=== PATIENT | male | born 1965 | race Two or more races ===

== ENCOUNTER 2019-01-18 16:08 | Inpatient (IN) | payer BC ==
[~2019-01-18] VITALS: Ht 180.3 cm; Wt 79.1 kg
[2019-01-18 17:10] LABS: Basophils # (auto) 0 uL; Basophils % (auto) 0.2 % (0.0-2.0); Eosinophils # (auto) 0.5 uL; Eosinophils % (auto) 2.7 % (0.0-7.0); Hematocrit 43.1 % (41.0-53.0); Hemoglobin 14.5 g/dL (13.5-17.5); Lymphocytes # (auto) 1.7 uL; Lymphocytes % (auto) 9.5 % (10.0-50.0); Mean Corpuscular Hemoglobin 30.3 pg (28.0-32.0); Mean Corpuscular Hgb Conc. 33.7 g/dL (32.0-36.0); Mean Corpuscular Volume 89.8 fL (80.0-100.0); Monocytes % (auto) 5.8 % (0.0-12.0); Neutrophils # (auto) 14.3 uL; Neutrophils % (auto) 81.8 % (37.0-80.0); Platelet Count (auto) 416 10^3/uL (140-450); White Blood Cell 17.5 10^3/uL (4.4-10.8)
[2019-01-18 17:23] LABS: Alanine Aminotransferase 25 U/L (16-61); Albumin 3.5 g/dL (3.4-5.0); Anion Gap 11 (5-15); Aspartate Aminotransferase 15 U/L (15-37); BUN/Creatinine Ratio 13.9; Blood Urea Nitrogen 17 mg/dL (7-18); Calcium 8.2 mg/dL (8.5-10.1); Carbon Dioxide 23 mmol/L (21-32); Chloride 106 mmol/L (98-107); GFR African American 80 mL/min; GFR Non-African American 66 mL/min; Glucose 104 mg/dL (74-106); Potassium 3.3 mmol/L (3.5-5.1); Sodium 140 mmol/L (136-145)
[2019-01-18 17:28] LABS: Alkaline Phosphatase 72 U/L (45-117); Bilirubin, Total 0.8 mg/dL (0.2-1.0); Total Protein 6.9 g/dL (6.4-8.2)
[2019-01-18] MEDS ORDERED: IOHEXOL 300 MG/ML 100ML BOTTLE IJ ONE (19:01)
[2019-01-18] MEDS ORDERED: ONDANSETRON HCL 4 MG/2 ML VIAL IV ONE (20:00)
[2019-01-18] MEDS ORDERED: SODIUM CHLORIDE 0.9% 1,000 ML IV ONE (20:00)
[2019-01-18] MEDS ORDERED: MORPHINE SULFATE 4 MG/ML SYR/VIAL IV ONE (20:00)
[2019-01-18] MEDS ORDERED: cloNIDine HCL 0.1 MG TAB PO ONE (20:00)
[2019-01-18 20:18] LABS: Amylase 98 U/L (25-115); Lipase 1039 U/L (73-393)
[2019-01-18] MEDS ORDERED: D5W/SOD CHL 0.45% 1,000 ML IV ONE (22:30)
[2019-01-18] MEDS ORDERED: metroNIDAZOLE 500MG/100ML 100 ML IV ONE (23:00)
[2019-01-18] MEDS ORDERED: cefTRIAXone 1GM/50ML D5W 50 ML IV ONE (23:00)
[2019-01-18] MEDS ORDERED: ACETAMINOPHEN 325 MG TAB PO PRN (23:00)
[2019-01-18] MEDS ORDERED: HYDROcodone-ACET 5/325MG TAB PO PRN (23:00)
[2019-01-18] MEDS ORDERED: ONDANSETRON HCL 4 MG/2 ML VIAL IV PRN (23:00)
[2019-01-18] MEDS ORDERED: TEMAZEPAM 15 MG CAP PO PRN (23:00)
[2019-01-18] MEDS: SODIUM CHLORIDE 0.9% 1,000 ML IV SCH (23:18)
[2019-01-19 00:11] LABS: INR 0.99 (0.9-1.15)
[2019-01-19] MEDS: MORPHINE SULFATE 4 MG/ML SYR/VIAL IV PRN ×4 (01:15→23:17)
[2019-01-19 01:20] VITALS: BP 129/90
--- NOTE | 2019-01-19 03:15 | NUR ---
MS admit from ER STEPHY CRAWFORD admitted to tele/MS after SBAR received. Patient oriented to ANA GIBSON, primary RN, unit, room, bed, and unit policies regarding patient care and visiting hours. Patient weighed by bed scale and encouraged to call if they need something. All questions and concerns addressed, patient verbalized understanding. Note: Patient alert and oriented X4, ambulatory, skin intact, no acute distress noted.
[2019-01-19 05:00] VITALS: BP 116/72
[2019-01-19] MEDS: metroNIDAZOLE 500MG/100ML 100 ML IV SCH ×3 (06:00→22:29)
--- NOTE | 2019-01-19 07:35 | NUR ---
RECEIVED REPORT AND ASSUME CARE OF PT. A/OX4. DENIED S/S ACUTE DISTRESS. UPDATE PT WITH POC. BED AT LOWEST POSITION. CALL LIGHT AND BELONGINGS WITHIN REACH. WILL CONT TO MONITOR.
[2019-01-19 08:00] VITALS: BP 142/98
[2019-01-19 08:30] LABS: Basophils # (auto) 0 uL; Basophils % (auto) 0.3 % (0.0-2.0); Eosinophils # (auto) 0.5 uL; Eosinophils % (auto) 4.2 % (0.0-7.0); Hematocrit 44.7 % (41.0-53.0); Lymphocytes # (auto) 2.2 uL; Lymphocytes % (auto) 19.1 % (10.0-50.0); Mean Corpuscular Hemoglobin 30.3 pg (28.0-32.0); Mean Corpuscular Hgb Conc. 33.5 g/dL (32.0-36.0); Mean Corpuscular Volume 90.3 fL (80.0-100.0); Monocytes # (auto) 0.8 uL; Monocytes % (auto) 6.6 % (0.0-12.0); Neutrophils # (auto) 8.1 uL; Neutrophils % (auto) 69.8 % (37.0-80.0); Nucleated Red Blood Cells % 0.1 %; Platelet Count (auto) 420 10^3/uL (140-450); Red Blood Cells 4.96 10^6/uL (4.5-5.90); Red Cell Distribution Width 14.4 % (11.8-14.3); White Blood Cell 11.5 10^3/uL (4.4-10.8)
[2019-01-19 08:40] LABS: Albumin 3.4 g/dL (3.4-5.0); BUN/Creatinine Ratio 12.4; Calcium 8.7 mg/dL (8.5-10.1); Potassium 3.7 mmol/L (3.5-5.1)
[2019-01-19 08:43] LABS: Bilirubin, Total 1.4 mg/dL (0.2-1.0)
[2019-01-19] MEDS ORDERED: cefTRIAXone 1GM/50ML D5W 50 ML IV SCH ×2 (09:00→22:00)
[2019-01-19] MEDS ORDERED: FAMOTIDINE 20 MG TAB PO SCH (10:00)
[2019-01-19] MEDS: SODIUM CHLORIDE 0.9% 1,000 ML IV SCH ×2 (11:17→20:25)
[2019-01-19 12:00] VITALS: BP 149/80
[2019-01-19] MEDS ORDERED: CARISOPRODOL 350 MG TAB PO PRN (15:15)
[2019-01-19 16:57] VITALS: BP 139/90
--- NOTE | 2019-01-19 19:27 | NUR ---
PT RESTING IN BED. NO S/S ACUTE DISTRESS NOTED. ENDORSED CARE TO NIGHT NURSE.
[2019-01-19 22:00] VITALS: BP_SYST 132; BP_SYST 139; BP_DIAS 86; BP_DIAS 90
[2019-01-19] MEDS ORDERED: FAMOTIDINE (10MG/ML) 2ML VL IV SCH (22:00)
[2019-01-20] MEDS: SODIUM CHLORIDE 0.9% 1,000 ML IV SCH ×3 (03:33→21:02)
[2019-01-20 05:00] VITALS: BP 153/77
[2019-01-20] MEDS: metroNIDAZOLE 500MG/100ML 100 ML IV SCH (05:39)
[2019-01-20] MEDS: MORPHINE SULFATE 4 MG/ML SYR/VIAL IV PRN ×2 (05:45→20:57)
[2019-01-20 06:54] LABS: Basophils # (auto) 0 uL; Basophils % (auto) 0.4 % (0.0-2.0); Eosinophils # (auto) 0.6 uL; Eosinophils % (auto) 6.2 % (0.0-7.0); Hematocrit 44.4 % (41.0-53.0); Hemoglobin 15.3 g/dL (13.5-17.5); Lymphocytes # (auto) 1.6 uL; Lymphocytes % (auto) 17.2 % (10.0-50.0); Mean Corpuscular Hgb Conc. 34.5 g/dL (32.0-36.0); Mean Corpuscular Volume 89.8 fL (80.0-100.0); Monocytes # (auto) 0.6 uL; Monocytes % (auto) 6.2 % (0.0-12.0); Neutrophils # (auto) 6.4 uL; Nucleated Red Blood Cells % 0.1 %; Platelet Count (auto) 410 10^3/uL (140-450); Red Blood Cells 4.94 10^6/uL (4.5-5.90); Red Cell Distribution Width 14.1 % (11.8-14.3); White Blood Cell 9.1 10^3/uL (4.4-10.8)
[2019-01-20 07:15] LABS: BUN/Creatinine Ratio 13.4; Calcium 8.7 mg/dL (8.5-10.1); Potassium 3.6 mmol/L (3.5-5.1)
[2019-01-20 07:22] LABS: Amylase 57 U/L (25-115); Lipase 205 U/L (73-393)
--- NOTE | 2019-01-20 07:30 | NUR ---
OPENING SHIFT NOTE: Received report from NOC RN, Jewels. Assumed care of patient. Patient resting in bed, denies pain. Bed in lowest position, rails x2 up and call light within reach. Updated on plan of care. Will continue to monitor.
[2019-01-20 08:39] VITALS: BP 161/94
--- NOTE | 2019-01-20 09:44 | NUR ---
FAMILY/PASSWORD: Spoke to patient's mother via phone. Patient has no established password on chart. Unable to provide mother any information at this time. Spoke to patient. Patient is agreeable to have staff give information to family. Password of '[place]' established. Transferred patient's mother to patient so he could inform her of password and updated himself on status.
--- NOTE | 2019-01-20 10:45 | NUR ---
MD: Dr Castle at bedside to see patient.
[2019-01-20] MEDS ORDERED: LISINOPRIL 10 MG TAB PO ONE (11:00)
[2019-01-20 12:30] VITALS: BP 154/91
--- NOTE | 2019-01-20 13:40 | NUR ---
IV ACCESS: RN called to room. Swelling noted to right AC near IV site. Assessed site and noted IV catheter to be dislodged. Catheter removed intact. Pressure dressing applied.
[2019-01-20 16:52] VITALS: BP 127/65
--- NOTE | 2019-01-20 17:51 | NUR ---
IV ACCESS: New #20 gauge IV started in left forearm after two attempts. Patient tolerated well. IVF restarted.
--- NOTE | 2019-01-20 19:10 | NUR ---
Opening Shift Note Received report from SAQIB MAYS, assumed care of patient. Patient awake and alert. No S/S of distress/SOB or pain. Instructed on POC and to call for assist PRN, will continue to monitor for changes Q1hr and PRN.
--- NOTE | 2019-01-20 19:14 | NUR ---
CLOSING SHIFT NOTE: Report given to NOC Ellen MAYS. Endorsed care of patient.
[2019-01-20] MEDS ORDERED: ATORVASTATIN 20 MG TAB PO SCH (22:00)
[2019-01-20 22:09] VITALS: BP 155/85
[2019-01-21] VITALS: BP 144/74
--- NOTE | 2019-01-21 05:00 | NUR ---
BP CHECK BP STABLE WITH A READING OF 131/72 AND A HEART RATE OF 63BPM
--- NOTE | 2019-01-21 05:15 | NUR ---
ROUNDS PATIENT RESTING IN BED WITH EYES CLOSED, EVEN AND UNLABORED RESPIRATIONS AT 18BPM AND SATURATION AT 93% ON ROOM AI. NO SIGNS OR SYMPTOMS OF PAIN OR DISTRESS. CALL LIGHT WITH IN REACH.
[2019-01-21 05:16] VITALS: BP 131/72
[2019-01-21 07:10] LABS: Basophils # (auto) 0 uL; Basophils % (auto) 0.4 % (0.0-2.0); Eosinophils # (auto) 0.7 uL; Eosinophils % (auto) 7.9 % (0.0-7.0); Hemoglobin 15.7 g/dL (13.5-17.5); Lymphocytes # (auto) 1.3 uL; Mean Corpuscular Hemoglobin 30.6 pg (28.0-32.0); Mean Corpuscular Hgb Conc. 34.2 g/dL (32.0-36.0); Mean Corpuscular Volume 89.5 fL (80.0-100.0); Monocytes # (auto) 0.6 uL; Monocytes % (auto) 7.1 % (0.0-12.0); Neutrophils # (auto) 6.1 uL; Neutrophils % (auto) 69.6 % (37.0-80.0); Platelet Count (auto) 435 10^3/uL (140-450); Red Blood Cells 5.14 10^6/uL (4.5-5.90); Red Cell Distribution Width 13.7 % (11.8-14.3); White Blood Cell 8.8 10^3/uL (4.4-10.8)
[2019-01-21 07:25] LABS: BUN/Creatinine Ratio 10.8; Calcium 8.9 mg/dL (8.5-10.1); Potassium 3.5 mmol/L (3.5-5.1)
--- NOTE | 2019-01-21 07:30 | NUR ---
OPENING SHIFT NOTE: Received report from NOC RNEllen. Assumed care of patient. Patient resting in bed, denies pain. Bed in lowest position, rails x2 up and call light within reach. Updated on plan of care. Will continue to monitor.
[2019-01-21 09:00] VITALS: BP 144/90
[2019-01-21] MEDS ORDERED: LISINOPRIL 10 MG TAB PO SCH (10:00)
[2019-01-21] MEDS ORDERED: ASPirin 81 mg TAB PO SCH (10:00)
[2019-01-21] MEDS ORDERED: PANTOPRAZOLE 40 MG TAB PO SCH (10:00)
--- NOTE | 2019-01-21 11:09 | NUR ---
MD: Dr Palacios at bedside. Plan to discharge home today.
[2019-01-21 11:52] LABS: Cholesterol 164 mg/dL (< 200); Triglycerides 96 mg/dL (< 150)
[2019-01-21 11:54] LABS: HDL Cholesterol 35 mg/dL (40-59); LDL Cholesterol 122 mg/dL (< 100)
[2019-01-21 12:04] VITALS: BP 144/90
[2019-01-21 13:00] VITALS: BP 165/100
[2019-01-21] MEDS: SODIUM CHLORIDE 0.9% 1,000 ML IV SCH (13:40)
--- NOTE | 2019-01-21 14:41 | NUR ---
DISCHARGE: Discharge instructions given as ordered. Encourage to follow up with PMD as instructed. All questions and concerns addressed. Patient verbalized understanding. Medication reconciliation form completed and copy given to patient. IV removed with catheter intact, pressure dressing applied. Patient taken to vehicle via wheelchair with all personal belongings, accompanied by staff and family member. No distress noted at time of departure.
== END 2019-01-21 14:30 | disposition home or self-care (01) | DRG 439 ==
LOC: EDBD 16:08 → ER 16:10 → CENTRAL 23:03
PROVIDERS: ADMIT Nurse Practitioner; ATTEND Internal Medicine
DX: K85.90 Acute pancreatitis without necrosis or infection, unspecified (principal); R65.10 Systemic inflammatory response syndrome (SIRS) of non-infectious origin without acute organ dysfunction; E87.6 Hypokalemia; K86.1 Other chronic pancreatitis; R55 Syncope and collapse; K44.9 Diaphragmatic hernia without obstruction or gangrene; M51.36 Other intervertebral disc degeneration, lumbar region; I12.9 Hypertensive chronic kidney disease with stage 1 through stage 4 chronic kidney disease, or unspecified chronic kidney disease; N18.9 Chronic kidney disease, unspecified; Z79.82 Long term (current) use of aspirin; Z83.3 Family history of diabetes mellitus; Z79.899 Other long term (current) drug therapy; Z86.73 Personal history of transient ischemic attack (TIA), and cerebral infarction without residual deficits
CPT/HCPCS: 36415; 70450; 71045; 74177; 76705; 80048; 80053; 80061; 82150; 83036; 83605; 83690; 83735; 84443; 84484; 85025; 85610; 85730; 87040; 93005; 94761; 96361; 96365; 96367; 96375; G0378; J0696; J2405; J3490

== ENCOUNTER 2019-04-21 20:31 | Emergency (ER) | payer BC ==
[~2019-04-21] VITALS: Ht 182.9 cm; Wt 81.6 kg
[2019-04-22 01:52] LABS: Basophils # (auto) 0.1 uL; Basophils % (auto) 0.7 % (0.0-2.0); Eosinophils # (auto) 0.6 uL; Eosinophils % (auto) 6.1 % (0.0-7.0); Hematocrit 42.4 % (41.0-53.0); Hemoglobin 14.8 g/dL (13.5-17.5); Lymphocytes # (auto) 1.8 uL; Lymphocytes % (auto) 17.9 % (10.0-50.0); Mean Corpuscular Hemoglobin 31.5 pg (28.0-32.0); Mean Corpuscular Volume 90.1 fL (80.0-100.0); Monocytes # (auto) 0.7 uL; Monocytes % (auto) 7.1 % (0.0-12.0); Neutrophils % (auto) 68.2 % (37.0-80.0); Platelet Count (auto) 402 10^3/uL (140-450); White Blood Cell 10.3 10^3/uL (4.4-10.8)
[2019-04-22 02:14] LABS: Urine Bacteria NONE SEEN /hpf (None Seen); Urine Blood 1+ /uL (Negative); Urine Specific Gravity 1.008 (1.001-1.035); Urine WBC <1 /hpf (0 - 3)
[2019-04-22 02:15] LABS: Alanine Aminotransferase 30 U/L (16-61); Albumin 3.9 g/dL (3.4-5.0); Anion Gap 8 (5-15); BUN/Creatinine Ratio 15.9; Blood Urea Nitrogen 14 mg/dL (7-18); Calcium 8.9 mg/dL (8.5-10.1); Carbon Dioxide 22 mmol/L (21-32); Chloride 110 mmol/L (98-107); GFR African American 117 mL/min; GFR Non-African American 97 mL/min; Glucose 101 mg/dL (74-106); Potassium 3.9 mmol/L (3.5-5.1); Sodium 140 mmol/L (136-145)
[2019-04-22 02:26] LABS: Alkaline Phosphatase 82 U/L (45-117); Aspartate Aminotransferase 12 U/L (15-37); Bilirubin, Total 0.7 mg/dL (0.2-1.0); Total Protein 7.5 g/dL (6.4-8.2)
[2019-04-22 04:58] VITALS: BP 145/81
== END 2019-04-22 05:00 | disposition home or self-care (01) ==
LOC: ER 20:32
DX: R10.9 Unspecified abdominal pain (principal); E78.5 Hyperlipidemia, unspecified; I10 Essential (primary) hypertension; F12.10 Cannabis abuse, uncomplicated; Z86.73 Personal history of transient ischemic attack (TIA), and cerebral infarction without residual deficits
CPT/HCPCS: 36415; 71045; 74176; 80053; 81001; 84484; 85025; 85379; 94761

== ENCOUNTER → 2020-01-30 | Emergency (ER) | payer BC ==
[~2020-01-30] VITALS: Ht 182.9 cm; Wt 81.6 kg
[~2020-01-30] MED LIST: LISI-646 PO
[2020-01-30 23:18] LABS: Lymphocytes # (auto) 1.2 10 ^3/uL (0.4-5.4); Monocytes # (auto) 0.6 10 ^3/uL (0-1.3)
[2020-01-30 23:20] LABS: Basophils # (auto) 0.1 10 ^3/uL (0-0.2); Basophils % (auto) 0.5 % (0.0-2.0); Eosinophils # (auto) 0.7 10 ^3/uL (0-0.8); Eosinophils % (auto) 6.4 % (0.0-7.0); Hematocrit 48.2 % (41.0-53.0); Hemoglobin 16.4 g/dL (13.5-17.5); Lymphocytes % (auto) 11.8 % (10.0-50.0); Mean Corpuscular Hemoglobin 30.4 pg (28.0-32.0); Mean Corpuscular Volume 89.3 fL (80.0-100.0); Monocytes % (auto) 6.1 % (0.0-12.0); Neutrophils # (auto) 7.8 10 ^3/uL (1.6-8.6); Neutrophils % (auto) 75.2 % (37.0-80.0); Nucleated Red Blood Cells % 0.1 %; Platelet Count (auto) 509 10^3/uL (140-450); White Blood Cell 10.4 10^3/uL (4.4-10.8)
[2020-01-30 23:33] LABS: INR 1.01 (0.9-1.15)
[2020-01-30 23:36] LABS: Albumin 4.1 g/dL (3.4-5.0); Anion Gap 6 (5-15); Blood Urea Nitrogen 19 mg/dL (7-18); Calcium 9.3 mg/dL (8.5-10.1); Carbon Dioxide 23 mmol/L (21-32); Chloride 108 mmol/L (98-107); Glucose 101 mg/dL (74-106); Potassium 3.7 mmol/L (3.5-5.1); Sodium 137 mmol/L (136-145)
[2020-01-30 23:44] LABS: Alanine Aminotransferase 38 U/L (16-61); Alkaline Phosphatase 84 U/L (45-117); Aspartate Aminotransferase 18 U/L (15-37); BUN/Creatinine Ratio 19.2; Bilirubin, Total 1.1 mg/dL (0.2-1.0); GFR African American 102 mL/min; GFR Non-African American 84 mL/min
[2020-01-31 03:38] LABS: Urine Bacteria FEW /hpf (None Seen); Urine Blood 1+ /uL (Negative); Urine Mucus FEW (None Seen); Urine Specific Gravity 1.014 (1.001-1.035); Urine WBC 1 /hpf (0 - 3)
[2020-01-31 03:54] LABS: Alcohol, Urine < 3.0 mg/dL (0-10); Amphetamine Screen, Urine NEGATIVE (NEGATIVE); Barbiturate Scree,Urine NEGATIVE (NEGATIVE); Benzodiazephine Screen, Urine NEGATIVE (NEGATIVE); Cannabinoid Screen, Urine POSITIVE (NEGATIVE); Cocaine Screen, Urine POSITIVE (NEGATIVE); Opiate Scree,Urine NEGATIVE (NEGATIVE); Phencyclidine Screen, Urine NEGATIVE (NEGATIVE)
[2020-01-31 06:22] VITALS: BP 151/97
== END | disposition home or self-care (01) ==
LOC: ER 22:34
DX: I73.01 Raynaud's syndrome with gangrene (principal); F41.9 Anxiety disorder, unspecified; I10 Essential (primary) hypertension; E78.5 Hyperlipidemia, unspecified; Z86.73 Personal history of transient ischemic attack (TIA), and cerebral infarction without residual deficits
CPT/HCPCS: 36415; 70450; 71045; 80053; 80307; 81001; 83605; 84484; 85025; 85610; 85730; 87070; 87804; 87880; 93005

== ENCOUNTER 2020-01-31 16:33 | Inpatient (IN) | payer BC ==
[~2020-01-31] VITALS: Ht 182.9 cm; Wt 85.8 kg
[2020-01-31] MEDS ORDERED: SODIUM CHLORIDE 0.9% 1,000 ML IV ONE ×2 (16:43)
[2020-01-31] MEDS ORDERED: CLOPIDOGREL BISULFATE 75 MG TAB PO ONE (18:00)
[2020-01-31 18:01] LABS: Basophils # (auto) 0.1 10 ^3/uL (0-0.2); Basophils % (auto) 0.5 % (0.0-2.0); Eosinophils % (auto) 7.1 % (0.0-7.0); Hemoglobin 15.9 g/dL (13.5-17.5); Lymphocytes # (auto) 2.1 10 ^3/uL (0.4-5.4); Lymphocytes % (auto) 14.9 % (10.0-50.0); Mean Corpuscular Hemoglobin 30.4 pg (28.0-32.0); Mean Corpuscular Hgb Conc. 33.1 g/dL (32.0-36.0); Mean Corpuscular Volume 91.6 fL (80.0-100.0); Monocytes # (auto) 0.9 10 ^3/uL (0-1.3); Monocytes % (auto) 6.7 % (0.0-12.0); Neutrophils # (auto) 9.7 10 ^3/uL (1.6-8.6); Neutrophils % (auto) 70.8 % (37.0-80.0); Nucleated Red Blood Cells % 0.2 %; Platelet Count (auto) 422 10^3/uL (140-450); Red Blood Cells 5.24 10^6/uL (4.5-5.90); White Blood Cell 13.7 10^3/uL (4.4-10.8)
[2020-01-31 18:15] LABS: INR 0.97 (0.9-1.15); Partial Thromboplastin Time 27.9 sec (23.64-32.05)
[2020-01-31 18:19] LABS: Alanine Aminotransferase 36 U/L (16-61); Albumin 3.6 g/dL (3.4-5.0); Anion Gap 7 (5-15); Blood Urea Nitrogen 23 mg/dL (7-18); Calcium 8.7 mg/dL (8.5-10.1); Carbon Dioxide 24 mmol/L (21-32); Chloride 106 mmol/L (98-107); Glucose 107 mg/dL (74-106); Potassium 3.7 mmol/L (3.5-5.1); Sodium 137 mmol/L (136-145)
[2020-01-31 18:24] LABS: Alkaline Phosphatase 101 U/L (45-117); Aspartate Aminotransferase 18 U/L (15-37); BUN/Creatinine Ratio 22.3; Bilirubin, Total 0.4 mg/dL (0.2-1.0); GFR African American 97 mL/min; GFR Non-African American 80 mL/min; Total Protein 7.2 g/dL (6.4-8.2)
[2020-01-31] MEDS ORDERED: MORPHINE SULF INJ 2 MG/ML SYRINGE 1ML IV PRN ×3 (19:00)
[2020-01-31] MEDS ORDERED: NITROGLYCERIN 0.4 MG SL TAB SL PRN ×2 (19:00)
[2020-01-31] MEDS ORDERED: ONDANSETRON HCL 4 MG/2 ML VIAL IV PRN (19:00)
[2020-01-31] MEDS ORDERED: ALUM & MAG HYDROX-SIMETH LIQ(MAALOX) 30 ML PO PRN (19:00)
[2020-01-31] MEDS ORDERED: LORazepam 0.5 MG TAB PO PRN (19:00)
[2020-01-31] MEDS: SODIUM CHLORIDE 0.9% 1,000 ML IV SCH (19:48)
[2020-01-31] MEDS: HYDROcodone-ACET 5/325MG TAB PO PRN (21:18)
[2020-01-31] MEDS ORDERED: LISI-646 PO (21:56)
[2020-01-31 22:00] VITALS: BP 161/103
[2020-01-31] MEDS ORDERED: ATORVASTATIN 20 MG TAB PO SCH (22:00)
[2020-01-31 22:29] LABS: Cholesterol 177 mg/dL (< 200); HDL Cholesterol 31 mg/dL (40-59); LDL Cholesterol 136 mg/dL (< 100); Triglycerides 250 mg/dL (< 150)
[2020-02-01 05:00] VITALS: BP 157/97
[2020-02-01] MEDS: HYDROcodone-ACET 5/325MG TAB PO PRN ×3 (05:35→21:53)
[2020-02-01 07:09] LABS: Eosinophils # (auto) 0.9 10 ^3/uL (0-0.8); Hemoglobin 15.5 g/dL (13.5-17.5)
[2020-02-01 07:12] LABS: Basophils # (auto) 0 10 ^3/uL (0-0.2); Basophils % (auto) 0.6 % (0.0-2.0); Eosinophils % (auto) 9.6 % (0.0-7.0); Hematocrit 45.1 % (41.0-53.0); Lymphocytes % (auto) 22.2 % (10.0-50.0); Mean Corpuscular Hemoglobin 30.7 pg (28.0-32.0); Mean Corpuscular Hgb Conc. 34.4 g/dL (32.0-36.0); Mean Corpuscular Volume 89.2 fL (80.0-100.0); Monocytes # (auto) 0.6 10 ^3/uL (0-1.3); Monocytes % (auto) 7.1 % (0.0-12.0); Neutrophils # (auto) 5.4 10 ^3/uL (1.6-8.6); Neutrophils % (auto) 60.5 % (37.0-80.0); Platelet Count (auto) 460 10^3/uL (140-450); Red Blood Cells 5.05 10^6/uL (4.5-5.90); Red Cell Distribution Width 14.2 % (11.8-14.3)
[2020-02-01 07:28] LABS: Albumin 3.5 g/dL (3.4-5.0); Calcium 8.7 mg/dL (8.5-10.1); Magnesium 2.5 mg/dL (1.6-2.6); Potassium 3.7 mmol/L (3.5-5.1)
[2020-02-01 07:31] LABS: BUN/Creatinine Ratio 18.5; Bilirubin, Total 0.9 mg/dL (0.2-1.0); INR 0.99 (0.9-1.15); Partial Thromboplastin Time 30.8 sec (23.64-32.05)
[2020-02-01 07:44] LABS: Urine Bacteria NONE SEEN /hpf (None Seen); Urine Blood Negative /uL (Negative); Urine Specific Gravity 1.012 (1.001-1.035); Urine WBC <1 /hpf (0 - 3)
[2020-02-01 08:03] LABS: Amphetamine Screen, Urine NEGATIVE (NEGATIVE); Barbiturate Scree,Urine NEGATIVE (NEGATIVE); Benzodiazephine Screen, Urine NEGATIVE (NEGATIVE); Cannabinoid Screen, Urine POSITIVE (NEGATIVE); Cocaine Screen, Urine POSITIVE (NEGATIVE); Opiate Scree,Urine NEGATIVE (NEGATIVE); Phencyclidine Screen, Urine NEGATIVE (NEGATIVE)
[2020-02-01 08:16] LABS: Alcohol, Urine < 3.0 mg/dL (0-10)
[2020-02-01 09:00] VITALS: BP 159/104
[2020-02-01] MEDS ORDERED: ENOXAPARIN SOD 40 MG/0.4 ML SYRINGE SC SCH (10:00)
[2020-02-01] MEDS ORDERED: ASPirin 81 mg TAB PO SCH (10:00)
[2020-02-01] MEDS ORDERED: CLOPIDOGREL BISULFATE 75 MG TAB PO SCH (10:00)
[2020-02-01] MEDS: cefTRIAXone 1GM/50ML D5W 50 ML IV SCH (10:23)
[2020-02-01] MEDS: ENOXAPARIN SOD 40 MG/0.4 ML SYRINGE SC SCH (10:27)
[2020-02-01] MEDS: SODIUM CHLORIDE 0.9% 1,000 ML IV SCH (11:26)
[2020-02-01 13:00] VITALS: BP 165/98
[2020-02-01] MEDS ORDERED: LISINOPRIL 20 MG TAB PO ONE (15:00)
[2020-02-01] MEDS ORDERED: MORPHINE SULF INJ 2 MG/ML SYRINGE 1ML IV PRN (15:00)
[2020-02-01] MEDS ORDERED: hydrALAZINE HCL 20 MG/ML VL IV PRN (15:00)
[2020-02-01] MEDS ORDERED: LORazepam 2MG/ML-1ML VIAL IV ONE (15:00)
[2020-02-01 16:56] VITALS: BP 153/99
[2020-02-01] MEDS: ATORVASTATIN 20 MG TAB PO SCH (21:53)
[2020-02-01 22:00] VITALS: BP 129/82
[2020-02-01] MEDS: ASPIRIN-DIPYRIDAMOLE (25/200MG) CAPSULE PO SCH (22:14)
[2020-02-02 05:00] VITALS: BP 138/87
[2020-02-02] MEDS: HYDROcodone-ACET 5/325MG TAB PO PRN (08:04)
[2020-02-02 09:00] VITALS: BP 163/102
[2020-02-02] MEDS: cefTRIAXone 1GM/50ML D5W 50 ML IV SCH (09:32)
[2020-02-02] MEDS: ENOXAPARIN SOD 40 MG/0.4 ML SYRINGE SC SCH (09:33)
[2020-02-02] MEDS: FAMOTIDINE 20 MG TAB PO SCH (09:34)
[2020-02-02] MEDS ORDERED: LISINOPRIL 20 MG TAB PO SCH (10:00)
[2020-02-02] MEDS: ASPIRIN-DIPYRIDAMOLE (25/200MG) CAPSULE PO SCH ×2 (10:25→21:55)
[2020-02-02 13:00] VITALS: BP 153/94
[2020-02-02] MEDS ORDERED: METOPROLOL TARTRATE 25 MG TAB PO ONE (14:30)
[2020-02-02 17:01] VITALS: BP 141/95
[2020-02-02] MEDS: METOPROLOL TARTRATE 25 MG TAB PO SCH (21:55)
[2020-02-02] MEDS: ATORVASTATIN 20 MG TAB PO SCH (21:55)
[2020-02-02 22:00] VITALS: BP 148/88
[2020-02-03] MEDS: HYDROcodone-ACET 5/325MG TAB PO PRN (02:56)
[2020-02-03 05:00] VITALS: BP 144/95
[2020-02-03 06:32] LABS: Potassium 3.8 mmol/L (3.5-5.1)
[2020-02-03 06:37] LABS: BUN/Creatinine Ratio 19.2; Calcium 9.4 mg/dL (8.5-10.1)
[2020-02-03 09:36] VITALS: BP 160/85
[2020-02-03] MEDS: ASPIRIN-DIPYRIDAMOLE (25/200MG) CAPSULE PO SCH ×2 (09:50→21:13)
[2020-02-03] MEDS: METOPROLOL TARTRATE 25 MG TAB PO SCH ×2 (09:51→21:14)
[2020-02-03] MEDS: ENOXAPARIN SOD 40 MG/0.4 ML SYRINGE SC SCH (09:51)
[2020-02-03] MEDS: FAMOTIDINE 20 MG TAB PO SCH (09:51)
[2020-02-03] MEDS ORDERED: SACUBITRIL-VALSARTAN 24mg/26mg TAB PO SCH (10:00)
[2020-02-03 13:29] VITALS: BP 142/92
[2020-02-03 17:56] VITALS: BP 156/101
[2020-02-03] MEDS: SACUBITRIL-VALSARTAN 24mg/26mg TAB PO SCH ×2 (18:07→21:13)
[2020-02-03] MEDS: ATORVASTATIN 20 MG TAB PO SCH (21:15)
[2020-02-03 22:03] VITALS: BP 140/79
[2020-02-04 05:00] VITALS: BP 122/86
[2020-02-04 09:49] VITALS: BP 140/94
[2020-02-04] MEDS: SACUBITRIL-VALSARTAN 24mg/26mg TAB PO SCH ×2 (09:55→22:06)
[2020-02-04] MEDS: FAMOTIDINE 20 MG TAB PO SCH (09:55)
[2020-02-04 13:00] VITALS: BP 167/101
[2020-02-04] MEDS: METOPROLOL TARTRATE 25 MG TAB PO SCH ×2 (13:37→22:06)
[2020-02-04] MEDS: ASPIRIN-DIPYRIDAMOLE (25/200MG) CAPSULE PO SCH ×2 (13:37→22:00)
[2020-02-04] MEDS: ENOXAPARIN SOD 40 MG/0.4 ML SYRINGE SC SCH (13:38)
[2020-02-04] MEDS: HYDROcodone-ACET 5/325MG TAB PO PRN (16:22)
[2020-02-04 16:56] VITALS: BP 139/92
[2020-02-04 22:00] VITALS: BP 120/78
[2020-02-04] MEDS: ATORVASTATIN 20 MG TAB PO SCH (22:06)
[2020-02-05 05:00] VITALS: BP 116/81
[2020-02-05 05:37] LABS: Basophils # (auto) 0.1 10 ^3/uL (0-0.2); Eosinophils # (auto) 0.8 10 ^3/uL (0-0.8); Hematocrit 49.1 % (41.0-53.0); Mean Corpuscular Hgb Conc. 34.7 g/dL (32.0-36.0)
[2020-02-05 05:40] LABS: Basophils % (auto) 0.7 % (0.0-2.0); Eosinophils % (auto) 7.1 % (0.0-7.0); Mean Corpuscular Hemoglobin 31.3 pg (28.0-32.0); Mean Corpuscular Volume 90.2 fL (80.0-100.0); Monocytes # (auto) 0.6 10 ^3/uL (0-1.3); Monocytes % (auto) 5.5 % (0.0-12.0); Neutrophils # (auto) 7.2 10 ^3/uL (1.6-8.6); Neutrophils % (auto) 67.7 % (37.0-80.0); Nucleated Red Blood Cells % 0.2 %; Platelet Count (auto) 505 10^3/uL (140-450); Red Blood Cells 5.45 10^6/uL (4.5-5.90); White Blood Cell 10.6 10^3/uL (4.4-10.8)
[2020-02-05 05:48] LABS: INR 1.05 (0.9-1.15); Partial Thromboplastin Time 31.6 sec (23.64-32.05)
[2020-02-05 05:59] LABS: BUN/Creatinine Ratio 23.5; Calcium 9.3 mg/dL (8.5-10.1); Potassium 4.6 mmol/L (3.5-5.1)
[2020-02-05] MEDS: HYDROcodone-ACET 5/325MG TAB PO PRN (08:34)
[2020-02-05 09:00] VITALS: BP 121/89
[2020-02-05] MEDS: SACUBITRIL-VALSARTAN 24mg/26mg TAB PO SCH (10:00)
[2020-02-05] MEDS: FAMOTIDINE 20 MG TAB PO SCH (10:00)
[2020-02-05] MEDS: ENOXAPARIN SOD 40 MG/0.4 ML SYRINGE SC SCH (10:00)
[2020-02-05] MEDS: METOPROLOL TARTRATE 25 MG TAB PO SCH (10:00)
[2020-02-05] MEDS: ASPIRIN-DIPYRIDAMOLE (25/200MG) CAPSULE PO SCH (10:00)
[2020-02-05] MEDS ORDERED: MIDAZOLAM HCL 5 MG/ML-1ML VIAL ONE (11:00)
[2020-02-05 13:00] VITALS: BP 117/76
[2020-02-05 14:49] VITALS: BP 117/76
== END 2020-02-05 16:45 | disposition home or self-care (01) | DRG 64 ==
LOC: ER 16:33 → TELE 16:34 → TELE-WESTW 19:50 → WEST WING 02-04 05:35 → TELE-WESTW 02-04 05:38
PROVIDERS: ADMIT Hospitalist; ATTEND Internal Medicine
DX: I63.89 Other cerebral infarction (principal); I50.43 Acute on chronic combined systolic (congestive) and diastolic (congestive) heart failure; G81.91 Hemiplegia, unspecified affecting right dominant side; I42.0 Dilated cardiomyopathy; N39.0 Urinary tract infection, site not specified; E11.65 Type 2 diabetes mellitus with hyperglycemia; E78.5 Hyperlipidemia, unspecified; E86.0 Dehydration; F10.10 Alcohol abuse, uncomplicated; F12.10 Cannabis abuse, uncomplicated; F14.10 Cocaine abuse, uncomplicated; F17.200 Nicotine dependence, unspecified, uncomplicated; F41.9 Anxiety disorder, unspecified; G56.03 Carpal tunnel syndrome, bilateral upper limbs; I08.1 Rheumatic disorders of both mitral and tricuspid valves; I11.0 Hypertensive heart disease with heart failure; I70.0 Atherosclerosis of aorta; Z79.899 Other long term (current) drug therapy; Z82.49 Family history of ischemic heart disease and other diseases of the circulatory system; Z83.3 Family history of diabetes mellitus; Z86.73 Personal history of transient ischemic attack (TIA), and cerebral infarction without residual deficits; Z91.14 Patient's other noncompliance with medication regimen; Z91.19 Patient's noncompliance with other medical treatment and regimen; Y90.9 Presence of alcohol in blood, level not specified
CPT/HCPCS: 36415; 70450; 70551; 71045; 80048; 80053; 80061; 80307; 81001; 82553; 83036; 83735; 84100; 84443; 84484; 85025; 85610; 85730; 86850; 86900; 86901; 87040; 87086; 93005; 93306; 93312; 93886; 97116; 97530; G0378; J0696; J2250

== ENCOUNTER 2021-03-13 22:08 | Emergency (ER) | payer BC, MEDICAID ==
[~2021-03-13] VITALS: Ht 180.3 cm; Wt 83.9 kg
[~2021-03-13 22:08] MED LIST changes: -LISI-646 PO; +LISI20TA28 PO
[2021-03-14 07:45] VITALS: BP 161/92
== END 2021-03-14 08:13 | disposition short-term general hospital (02) ==
LOC: ER 22:10
DX: M27.51 Perforation of root canal space due to endodontic treatment (principal); I10 Essential (primary) hypertension; E78.5 Hyperlipidemia, unspecified; F12.10 Cannabis abuse, uncomplicated; Z86.73 Personal history of transient ischemic attack (TIA), and cerebral infarction without residual deficits
CPT/HCPCS: 70486; 70490